=== PATIENT | female | born 1985 | race Caucasian/White ===

== ENCOUNTER 2017-06-24 15:49 | Emergency (ER) | payer OTHER ==
[~2017-06-24] VITALS: Ht 152.4 cm; Wt 82.3 kg
[2017-06-24 16:07] VITALS: BP 132/96
== END 2017-06-24 17:44 | disposition home or self-care (01) ==
LOC: ED 15:49
DX: J45.901 Unspecified asthma with (acute) exacerbation (principal); J18.9 Pneumonia, unspecified organism
CPT/HCPCS: J7512; J7613

== ENCOUNTER 2017-09-09 19:27 | Emergency (ER) | payer OTHER ==
[~2017-09-09] VITALS: Ht 152.4 cm; Wt 83.5 kg
[2017-09-09 19:42] VITALS: Ht 152.4 cm; Wt 83.5 kg
[2017-09-09 21:38] VITALS: BP 141/90
== END 2017-09-09 21:38 | disposition home or self-care (01) ==
LOC: ED 19:27
DX: J45.901 Unspecified asthma with (acute) exacerbation (principal); J06.9 Acute upper respiratory infection, unspecified
CPT/HCPCS: J2930; J7620; Q0092

== ENCOUNTER 2017-12-14 10:23 | Emergency (ER) | payer OTHER ==
[~2017-12-14] VITALS: Ht 152.4 cm; Wt 81.8 kg
[2017-12-14 10:26] VITALS: Ht 152.4 cm; Wt 81.8 kg
[2017-12-14 11:07] VITALS: BP 133/87
== END 2017-12-14 11:43 | disposition home or self-care (01) ==
LOC: ED 10:23
DX: J45.901 Unspecified asthma with (acute) exacerbation (principal)
CPT/HCPCS: J7512; J7613; J7644

== ENCOUNTER 2018-05-15 13:56 | Emergency (ER) | payer OTHER ==
[~2018-05-15] VITALS: Ht 157.5 cm; Wt 83.9 kg
[2018-05-15 18:32] VITALS: BP 142/96
== END 2018-05-15 18:32 | disposition home or self-care (01) ==
LOC: ED 13:56
DX: J98.01 Acute bronchospasm (principal)
CPT/HCPCS: J7512; J7620; Q0092

== ENCOUNTER 2019-09-12 12:56 | Emergency (ER) | payer SELFPAY ==
[~2019-09-12] VITALS: Ht 152.4 cm; Wt 77.1 kg
[2019-09-12 12:57] VITALS: Ht 152.4 cm; Wt 77.1 kg
[2019-09-12 15:23] VITALS: BP 125/84
== END 2019-09-12 15:23 | disposition home or self-care (01) ==
LOC: ED 12:56
DX: S09.90XA Unspecified injury of head, initial encounter (principal); J45.909 Unspecified asthma, uncomplicated; Z98.890 Other specified postprocedural states; W22.8XXA Striking against or struck by other objects, initial encounter; Y93.89 Activity, other specified; Y92.89 Other specified places as the place of occurrence of the external cause; Y99.8 Other external cause status
CPT/HCPCS: J2405

== ENCOUNTER 2019-09-17 23:53 | Emergency (ER) | payer BC ==
[~2019-09-17] VITALS: Ht 152.4 cm; Wt 87.5 kg
[2019-09-18 00:13] VITALS: Ht 152.4 cm; Wt 87.5 kg
[2019-09-18 03:01] VITALS: BP 122/67
== END 2019-09-18 03:01 | disposition home or self-care (01) ==
LOC: ED 23:53
DX: S06.9X0A Unspecified intracranial injury without loss of consciousness, initial encounter (principal); R42 Dizziness and giddiness; J45.909 Unspecified asthma, uncomplicated; W18.30XA Fall on same level, unspecified, initial encounter; Y93.89 Activity, other specified; Y92.89 Other specified places as the place of occurrence of the external cause; Y99.8 Other external cause status
CPT/HCPCS: J8597